=== PATIENT | male | born 1965 | race Caucasian/White ===

== ENCOUNTER → 2021-10-23 | Outpatient (CLI) | payer BC ==
[2021-10-23 14:56] LABS: Basophils # (A) 0.02 X 10*3/uL (0.00-0.10); Basophils % (A) 0.4 %; Eosinophils # (A) 0.13 X 10*3/uL (0.04-0.35); Eosinophils % (A) 2.5 %; HCT 47.6 % (39.6-50.0); HGB 15.3 g/dL (13.0-17.0); Immature Grans, Automated 0.2 %; Lymphocytes # (A) 1.49 X 10*3/uL (0.90-5.00); Lymphocytes % (A) 29.2 %; MCH 27.1 pg (27.0-32.0); MCHC 32.1 g/dL (32.0-37.0); MCV 84.4 fL (80.0-97.0); Mean Platelet Volume 11.7 fL (9.5-12.2); Monocytes # (A) 0.53 X 10*3/uL (0.20-1.00); Monocytes % (A) 10.4 %; NRBC Per 100 WBC 0 /100 WBCS (0.0-0.0); Neutrophils # (A) 2.93 X 10*3/uL (1.80-7.70); Neutrophils % (A) 57.3 %; Platelet Count 208 X 10*3/uL (140-440); RBC 5.64 X 10*6/uL (4.40-5.60); WBC 5.11 X 10*3/uL (4.50-10.00)
[2021-10-23 15:14] LABS: Anion Gap 9.4 mmol/L (10.00-18.00); Carbon Dioxide 26.6 mmol/L (20.0-27.5); Potassium 4.1 mmol/L (3.5-5.5)
== END | disposition home or self-care (01) ==
LOC: LABPAT 07:47
PROVIDERS: ATTEND Orthopaedic Surgery Hand Surgery
DX: Z01.812 Encounter for preprocedural laboratory examination (principal); G56.01 Carpal tunnel syndrome, right upper limb
CPT/HCPCS: 80051; 85025; 93005

== ENCOUNTER 2021-10-30 12:41 | Day surgery (SDC) | payer BC, OTHER ==
--- NOTE | 2021-10-29 09:20 | P.HPOR ---
History of Present Illness H&P Date: 10/29/21 Chief Complaint: Right carpal tunnel syndrome Subjective: This is a 55 year old male that presents today for initial evaluation regarding a several year history of worsening right hand numbness and weakness. He works as an electrician front. He has seen Dr. Barrett for cervical radiculopathy. He states he has night symptoms that can occasionally wake him from sleep. He denies any injury or inciting event. Physical Examination: RUE: AIN/PIN/Radial/Ulnar/Median motor intact. Radial/Ulnar/Median SILT. 2+/4 Radial/Ulnar pulses palpated. 5/5 APB, 5/5 FDI. Negative Finkelsteins, negative CMC grind, positive Durkan's compression. Imaging/Nerve studies: EMG/NCV of the bilateral upper extremities demonstrate moderate to severe right carpal tunnel syndrome. Right C5/6 radiculopathy. Impression: 1.) Right carpal tunnel syndrome, moderate/severe 2.) Right C5 C6 Radiculopathy Plan: Diagnosis and treatment options were discussed with the patient. Due to EMG and exam findings I recommend surgical release of his moderate to severe carpal tunnel syndrome. We discussed that his overlying C5-C6 radiculopathy is likely also contributing to his symptoms but majority of his symptoms seem to be evolving from his carpal tunnel compression on exam and diagnostic testing. Despite this we discussed he may not get complete relief of his symptoms due to this overlap but EMG findings are consistent with moderate/severe electrodiagnostic changes at the carpal tunnel. He would like to go forward with surgery after discussing risks and benefits including bleeding, infection, damage to surrounding tissue, incomplete resolution of symptoms, need to convert to open procedure and he wishes to go forward with right endoscopic vs open carpal tunnel release. -Abdirizak Davis DO Orthopedic Hand/Upper Extremity Surgeon Physical Examination Osteopathic Statement: *. No significant issues noted on an osteopathic structural exam other than those noted in the History and Physical/Consult.
[2021-10-29 10:51] VITALS: BMI 24.4
[~2021-10-30 12:41] MED LIST: HYDROmorphone 0.5 MG/0.5 ML SYRINGE IVP PRN; LACTATED RINGERS 1,000 ML IV SCH; LIDOCAINE 1% (10MG/ML) FOR IV START INTRADERMA PRN; ONDANSETRON 4 MG/2 ML VIAL IVP ONE; Pre Op ABX Message 1 EACH MISC MISCELLANE ONE
[2021-10-30 13:04] VITALS: TEMP 96.5
[2021-10-30] MEDS ORDERED: MIDAZOLAM 2 MG/2 ML VIAL ONE (14:26)
[2021-10-30] MEDS ORDERED: PROPOFOL 10 MG/ML 20 ML VIAL IV ONE (14:26)
[2021-10-30] MEDS ORDERED: fentaNYL (PF) 50 MCG/ML 2 ML AMP ONE (14:26)
[2021-10-30] MEDS ORDERED: LIDOCAINE 1% INJ 10MG/ML (20 ML MDV) SQ ONE (14:35)
[2021-10-30] MEDS ORDERED: BUPIVACAINE (PF) 0.5% 30 ML VIAL SQ ONE (14:35)
[2021-10-30 15:04] VITALS: PULSE 61
[2021-10-30 15:15] VITALS: BP 125/82; RESP 17
--- NOTE | 2021-10-30 21:08 | P.OP ---
Date of Procedure: 10/30/21 Preoperative Diagnosis: Right carpal tunnel syndrome Postoperative Diagnosis: Right carpal tunnel syndrome Procedure(s) Performed: Right endoscopic carpal tunnel release Anesthesia: MAC Surgeon: Abdirizak Davis Denial Resolution Specialist #1: Shaji Barragan Estimated Blood Loss (ml): 0 Pathology: none sent Condition: stable Disposition: PACU Description of Procedure: This is a 56 year old male who presents today for a right endoscopic carpal tunnel release after having failed conservative treatment in the past. Risks and benefits of surgery were discussed with the patient including bleeding, damage to surrounding tissue, infection, need to convert to open procedure, need for further surgery as well as risks of anesthesia including pulmonary embolism and even and the patient wished to proceed with surgical intervention. The patients was seen in the pre-operative area by myself. Consent and H&P were completed and updated. The correct extremity was marked in the pre-operative area by myself and all other questions were answered. Operative Narrative: The patient was brought to the operating room by the department of anesthesia. They remained on the portable stretcher and a rolling hand table was brought to the side of the operative extremity. Pre-operative time out was performed indicating the correct patient, procedure and laterality. All in the room agreed. The patient was then drifted off to sleep by the department of anes thesia. MAC anesthesia was utilized and a 50:50 mixture of 1% Lidocaine and 0.5% bupivacaine was injected into the subcutaneous tissues of the palmar skin, 6ccs total. A nonsterile tourniquet was then applied to the operative extremity and the right upper extremity was then prepped and draped in normal sterile fashion. The operative extremity was the exsanguinated with an esmarch bandage and the tourniquet was inflated to 250mmHg. 15 blade scalpel was utilized to make a transverse incision on the palmar skin just ulnar to the palmaris longus tendon at the level of the distal wrist crea se. Ragnell retractor was then placed radially and blunt dissection was performed to reveal the distal forearm fascia. This was lifted with fine Woo pick ups and Littler tenotomy scissors were then used to open the forearm fascia transversely and a double skin hook was then placed. Hamate finder was placed into the carpal tunnel and then sequential sized dilators were inserted followed by the synovial elevator to separate the flexor tenosynovium from the undersurface of the transverse carpal ligament and a washboard texture was felt. The MicroAire endoscopic carpal tunnel release system gun was the then inserted into the carpal tunnel hugging the deep portion of the transverse carpal ligament in line with the base of the ring finger. Transverse fibers of the ligament were directly visualized. Pressure was applied on the palm to reveal the distal extent of the transverse carpal ligament. The blade was then deployed and the distal half of the transverse carpal ligament was released. The scope was then brought distal again and remaining transverse fibers were incised with the blade. The proximal half of the transverse carpal ligament was then divided and again the scope was advanced distal and remaining transverse fibers were incised with the blade. The radial and ulnar leaflets were directly visualized and mobile consistent with complete release. Tenotomy scissors were then u tilized to release the remaining distal forearm fascia under direct visualization taking care to preserve the palmar cutaneous branch of the median nerve. Skin closure was performed with interrupted 4-0 Monocryl suture followed by Mastisol and steri strips. Sterile dressing was applied consisting of adaptic, 4x4s, Webril, and an mark bandage. Tourniquet was let down and the hand immediately was well perfused. The patient was then woken by the department of anesthesia and transferred to PACU in stable condition. Shaji GALICIA was present for the case in its entirety and assisted in major portions of the case and protection of vital neurovascular structures. Abdirizak Davis D.O. Orthopedic Hand/Upper Extremity Surgeon
== END 2021-10-30 15:30 | disposition home or self-care (01) ==
LOC: OR 12:41
PROVIDERS: ATTEND Orthopaedic Surgery Hand Surgery
DX: G56.01 Carpal tunnel syndrome, right upper limb (principal); M54.12 Radiculopathy, cervical region; K21.9 Gastro-esophageal reflux disease without esophagitis; Z98.890 Other specified postprocedural states
CPT/HCPCS: 29848; J2250; J2405; J2001; J3010; J2704